=== PATIENT | male | born 1985 | race African-American/Black ===

== ENCOUNTER 2021-06-08 13:25 | Emergency (ER) | payer OTHER, SELFPAY ==
[~2021-06-08] VITALS: Ht 182.9 cm; Wt 81.6 kg
[2021-06-08 13:42] VITALS: BP_SYST 143
[2021-06-08 14:20] VITALS: BP_SYST 143
== END 2021-06-08 14:20 | disposition home or self-care (01) ==
LOC: SED 13:25
DX: J06.9 Acute upper respiratory infection, unspecified (principal); E11.9 Type 2 diabetes mellitus without complications; Z20.822 Contact with and (suspected) exposure to COVID-19
CPT/HCPCS: 36415; 99283